=== PATIENT | male | born 2000 | race Caucasian/White ===

== ENCOUNTER 2019-07-01 22:24 | Emergency (ER) | payer SELFPAY ==
[~2019-07-01] VITALS: Ht 167.6 cm; Wt 59.0 kg
[2019-07-01 22:40] VITALS: BP 123/72
--- NOTE | 2019-07-01 23:34 | NUR ---
PT AMBULATED TO ER BED 11
[2019-07-01 23:45] VITALS: BP 123/72
--- NOTE | 2019-07-01 23:45 | NUR ---
19 Y/O M PRESENTS TO ED WI C/O DIFFICULTY BREATHING X1 HOUR. O2 SATURATION AT 97%. RESPIRATIONS EVEN AND UNLABORED. LUNG SOUNDS CLEAR THROUGHOUT. PT DENIES EATING OR DRINKING ANYTHING PRIOR TO SYMPTOMS OCCURING. PT THROAT CLEAR NO EXUDATE OR ERYTHEMA NOTED. PT DISCLOSED POSTIVE SPHYLLIS STATUS, REPORTS HE HAD ONE TREATMENT X1 YR AGO. PT HAS NO CURRENT URINARY COMPLIANTS. FAMILY AT BEDSIDE. WILL CONTINUE TO MONITOR.
[2019-07-02 00:50] LABS: BARBITURATE, URINE NEG. ng/ml (NEG <=200); BENZODIAZEPINE, URINE NEG. ng/mL (NEG <=200); CANNABINOID, URINE POS. ng/mL (NEG <=50); COCAINE, URINE NEG. ng/mL (NEG <=300); OPIATE, URINE NEG. ng/mL (NEG <=2000); PHENCYCLIDINE SCREEN,URINE NEG. ng/mL (NEG <=25)
--- NOTE | 2019-07-02 00:55 | NUR ---
PT PROVIDED PHONE NUMBER OF [phone] FOR F/U WITH LABORATORY RESULTS.
--- NOTE | 2019-07-02 00:59 | NUR ---
Patient discharged with v/s stable. Written and verbal after care instructions given and explained. Patient alert, oriented and verbalized understanding of instructions. Ambulatory with steady gait. All questions addressed prior to discharge. ID band removed. Patient advised to follow up with PMD. Rx of clotrimazole given. Patient educated on indication of medication including possible reaction and side effects. Opportunity to ask questions provided and answered.
[2019-07-04 06:25] LABS: CHLAMYDIA TRACHOMATIS AMP DNA Negative (Negative)
== END 2019-07-02 00:59 | disposition home or self-care (01) ==
LOC: MED 22:24
DX: R06.00 Dyspnea, unspecified (principal); F41.0 Panic disorder [episodic paroxysmal anxiety]; R21 Rash and other nonspecific skin eruption
CPT/HCPCS: 36415; 80305; 86592; 87491; 99283